=== PATIENT | male | born 1970 | race Caucasian/White ===

== ENCOUNTER 2020-11-13 11:30 | Inpatient (IN) ==
[2020-11-13] MEDS ORDERED: Isovue-370 500 ML BOTTLE IVP ONE (11:44)
[2020-11-13 12:20] LABS: Basophils % 0.2 %; Hematocrit 40.2 % (37.5-50.1); Hemoglobin 13.6 g/dL (12.9-16.9); Immature Granulocytes % 2.7 % (0-4); Lymphocytes # 0.6 K/mcL (0.6-4.6); Lymphocytes % 6.9 %; Mean Corpuscular HGB Conc 33.8 g/dL (31.6-35.5); Mean Corpuscular Hemoglobin 29.2 pg (28.0-33.3); Mean Corpuscular Volume 86.5 fL (83.0-100.0); Mean Platelet Volume 9.4 fL (9.4-12.4); Monocytes # 0.4 K/mcL (0.0-1.3); Monocytes % 4.2 %; Neutrophils # 7.4 K/mcL (1.6-8.9); Nucleated Red Blood Cells 0.3 /100 WBC (0); Platelet Count 260 K/mcL (140-400); Red Blood Count 4.65 M/mcL (4.19-5.50); Red Cell Distribution Width 13.3 % (11.5-14.5); White Blood Count 8.6 K/mcL (4.3-11.1)
[2020-11-13 12:38] LABS: BUN/Creatinine Ratio 13 (6-26); Blood Urea Nitrogen 14 mg/dL (6-20); Calcium 8.4 mg/dL (8.6-10.3); Carbon Dioxide 33 mEq/L (23-29); Chloride 97 mEq/L (98-107); Glucose 148 mg/dL (70-105); Osmolality,Calculated 283 (280-300); Potassium 4.5 mEq/L (3.5-5.1); Sodium 135 mEq/L (136-145); eGFR For African Americans > 60 (> 60); eGFR For Non-African Americans > 60 (> 60)
[2020-11-13 13:01] LABS: ABG Base Excess 7 mEq/L (-2 to 3); ABG HCO3 31 mEq/L (21-27); ABG Oxygen Saturation 93 % (95-98); ABG PCO2 40 mmHg (35-45); ABG PO2 61 mmHg (85-104); ABG TCO2 32 mEq/L (20-26)
[2020-11-13] MEDS ORDERED: Saliva Stimulant 44.3ml BOTTLE PO PRN (14:18)
[2020-11-13] MEDS ORDERED: Saline Nasal Spray 44 ML BOTTLE NS PRN (14:18)
[2020-11-13] MEDS ORDERED: Artificial Tears SOLN 15 ML BOTTLE BOTH EYES PRN (14:18)
[2020-11-13] MEDS ORDERED: Melatonin 3 MG TABLET PO PRN (14:18)
[2020-11-13 15:05] LABS: Alanine Aminotransferase 42 Units/L (7-52); Albumin 3.4 g/dL (3.5-5.7); Albumin/Globulin Ratio 1.1 (1.1-2.2); Alkaline Phosphatase 70 Units/L (34-104); Aspartate Amino Transferase 50 Units/L (13-39); Bilirubin,Direct 0.2 mg/dL (0.0-0.2); Bilirubin,Indirect 0.6 mg/dL (0.0-1.0); Bilirubin,Total 0.8 mg/dL (0.3-1.0); C-Reactive Protein 79 mg/L (Less than 10); Globulin 3.2 g/dL (2.4-3.5); Lactate Dehydrogenase 651 Units/L (140-271); Magnesium 1.9 mg/dL (1.6-2.6); Total Protein 6.6 g/dL (6.4-8.9)
[2020-11-13 15:11] LABS: Ferritin 787 ng/mL (20-250)
[2020-11-13 15:26] LABS: INR 1.2; Prothrombin Time 13.9 Seconds (9.4-12.1)
[2020-11-13] MEDS: Ipratropium 1 PUFF INHALER IH SCH ×3 (15:42→23:39)
[2020-11-13] MEDS: *HR* Heparin 5,000 UNIT/ML VIAL SQ SCH (17:56)
[2020-11-13] MEDS: Calcium Gluconate 1gm/50mL 1 GM/50 ML BAG IVPB SCH ×3 (18:30→23:37)
[2020-11-13 19:07] LABS: Adenovirus Not Detected (Not Detect); Bordetella Pertussis Not Detected (Not Detect); Chlamydophila pneumoniae Not Detected (Not Detect); Coronavirus 229E Not Detected (Not Detect); Coronavirus HKU1 Not Detected (Not Detect); Coronavirus NL63 Not Detected (Not Detect); Coronavirus OC43 Not Detected (Not Detect); Human Metapneumovirus Not Detected (Not Detect); Human Rhinovirus/Enterovirus Not Detected (Not Detect); Influenza A Subtype 2009 H1 Not Detected (Not Detect); Influenza B Not Detected (Not Detect); Mycoplasma pneumoniae Not Detected (Not Detect); Parainfluenza Virus 1 Not Detected (Not Detect); Parainfluenza Virus 2 Not Detected (Not Detect); Parainfluenza Virus 3 Not Detected (Not Detect); Parainfluenza Virus 4 Not Detected (Not Detect); Respiratory Syncytial Virus Not Detected (Not Detect)
[2020-11-13 19:10] LABS: SARS-CoV-2 DETECTED (Not Detect)
[2020-11-13] MEDS ORDERED: Ondansetron 4 MG/2 ML VIAL IVP PRN (19:10)
[2020-11-13] MEDS ORDERED: Naloxone 0.4 MG/ML INJ IVP PRN (19:10)
[2020-11-13] MEDS ORDERED: TOCILIZUMAB 810 MG in 0.9 % Sodium Chloride 95.5 ML IVPB ONE (19:15)
[2020-11-13] MEDS ORDERED: Dextrose Gel 15 GM/37.5 ML TUBE PO PRN ×2 (20:21)
[2020-11-13] MEDS ORDERED: D5% in Water 1,000 ML IVC PRN (20:21)
[2020-11-13] MEDS ORDERED: *HR* Dextrose 50 % in Water (Syg) 50 ML SYRINGE IVP PRN (20:21)
[2020-11-13] MEDS: Chlorhexidine Rinse 15 ML MOUTHWASH MM SCH (21:09)
[2020-11-14] MEDS: Ipratropium 1 PUFF INHALER IH SCH ×6 (03:45→23:56)
[2020-11-14] MEDS: *HR* Heparin 5,000 UNIT/ML VIAL SQ SCH ×2 (06:08→17:13)
[2020-11-14 06:38] LABS: Basophils % 0.4 %; Hemoglobin 13.4 g/dL (12.9-16.9); Immature Granulocytes % 4.4 % (0-4); Lymphocytes # 0.7 K/mcL (0.6-4.6); Lymphocytes % 9.8 %; Mean Corpuscular HGB Conc 33.5 g/dL (31.6-35.5); Mean Corpuscular Hemoglobin 29.5 pg (28.0-33.3); Mean Corpuscular Volume 88.1 fL (83.0-100.0); Mean Platelet Volume 9.8 fL (9.4-12.4); Monocytes # 0.3 K/mcL (0.0-1.3); Monocytes % 4.1 %; Neutrophils # 6.1 K/mcL (1.6-8.9); Nucleated Red Blood Cells 0.8 /100 WBC (0); Platelet Count 280 K/mcL (140-400); Red Blood Count 4.54 M/mcL (4.19-5.50); Red Cell Distribution Width 13.3 % (11.5-14.5); Segmented Neutrophils % 81.3 %; White Blood Count 7.5 K/mcL (4.3-11.1)
[2020-11-14 06:49] LABS: INR 1.2; Prothrombin Time 13.5 Seconds (9.4-12.1)
[2020-11-14 06:58] LABS: Alanine Aminotransferase 41 Units/L (7-52); Albumin 3.4 g/dL (3.5-5.7); Albumin/Globulin Ratio 1.1 (1.1-2.2); Alkaline Phosphatase 68 Units/L (34-104); Aspartate Amino Transferase 35 Units/L (13-39); BUN/Creatinine Ratio 18 (6-26); Bilirubin,Total 0.8 mg/dL (0.3-1.0); Blood Urea Nitrogen 16 mg/dL (6-20); Calcium 8.5 mg/dL (8.6-10.3); Carbon Dioxide 29 mEq/L (23-29); Chloride 96 mEq/L (98-107); Glucose 197 mg/dL (70-105); Magnesium 2.1 mg/dL (1.6-2.6); Osmolality,Calculated 285 (280-300); Phosphorous 3.7 mg/dL (2.7-4.5); Potassium 4.1 mEq/L (3.5-5.1); Sodium 134 mEq/L (136-145); Total Protein 6.4 g/dL (6.4-8.9); eGFR For African Americans > 60 (> 60); eGFR For Non-African Americans > 60 (> 60)
[2020-11-14 07:00] LABS: Lactate Dehydrogenase 620 Units/L (140-271)
[2020-11-14 07:11] LABS: Ferritin 609 ng/mL (20-250)
[2020-11-14 07:14] LABS: Platelet Estimate Normal (Normal); Polychromasia 1+ (Not Present); Reactive Lymphocytes Present (Not Present); Toxic Granulation Present (Not Present)
[2020-11-14 10:26] LABS: C-Reactive Protein 91 mg/L (Less than 10)
[2020-11-14] MEDS: Cholecalciferol (D-3) 1,000 UNIT (25MCG) TABLET PO SCH (10:51)
[2020-11-14] MEDS: Chlorhexidine Rinse 15 ML MOUTHWASH MM SCH ×2 (10:52→21:50)
[2020-11-14] MEDS: Multivit/Ca/Min/Fe/FA 1 TAB TABLET PO SCH (10:52)
[2020-11-15] MEDS: Ipratropium 1 PUFF INHALER IH SCH ×4 (04:12→21:52)
[2020-11-15] MEDS: *HR* Heparin 5,000 UNIT/ML VIAL SQ SCH (06:29)
[2020-11-15 06:33] LABS: Hematocrit 40.2 % (37.5-50.1); Hemoglobin 13.8 g/dL (12.9-16.9); Mean Corpuscular HGB Conc 34.3 g/dL (31.6-35.5); Mean Corpuscular Hemoglobin 29.7 pg (28.0-33.3); Mean Corpuscular Volume 86.5 fL (83.0-100.0); Mean Platelet Volume 9.4 fL (9.4-12.4); Platelet Count 321 K/mcL (140-400); Red Blood Count 4.65 M/mcL (4.19-5.50); Red Cell Distribution Width 13.1 % (11.5-14.5)
[2020-11-15 06:39] LABS: INR 1.1; Prothrombin Time 12.3 Seconds (9.4-12.1)
[2020-11-15 06:40] LABS: White Blood Count 13.6 K/mcL (4.3-11.1)
[2020-11-15 06:53] LABS: BUN/Creatinine Ratio 25 (6-26); Blood Urea Nitrogen 19 mg/dL (6-20); Calcium 8.7 mg/dL (8.6-10.3); Carbon Dioxide 28 mEq/L (23-29); Chloride 98 mEq/L (98-107); Glucose 211 mg/dL (70-105); Osmolality,Calculated 289 (280-300); Potassium 4.6 mEq/L (3.5-5.1); Sodium 135 mEq/L (136-145); eGFR For African Americans > 60 (> 60); eGFR For Non-African Americans > 60 (> 60)
[2020-11-15 06:55] LABS: Lactate Dehydrogenase 663 Units/L (140-271)
[2020-11-15 07:05] LABS: Ferritin 789 ng/mL (20-250)
[2020-11-15] MEDS: Chlorhexidine Rinse 15 ML MOUTHWASH MM SCH ×2 (07:53→19:47)
[2020-11-15] MEDS: Cholecalciferol (D-3) 1,000 UNIT (25MCG) TABLET PO SCH (07:53)
[2020-11-15] MEDS: Multivit/Ca/Min/Fe/FA 1 TAB TABLET PO SCH (07:53)
[2020-11-15] MEDS ORDERED: Isovue-370 500 ML BOTTLE IVP ONE (08:12)
[2020-11-15 11:17] LABS: C-Reactive Protein 35 mg/L (Less than 10)
[2020-11-15] MEDS: *HR* Enoxaparin 150 MG/ML SYRINGE SQ SCH (13:21)
[2020-11-16] MEDS: *HR* Enoxaparin 150 MG/ML SYRINGE SQ SCH ×2 (00:28→11:52)
[2020-11-16 02:50] LABS: C-Reactive Protein 22 mg/L (Less than 10); Lactate Dehydrogenase 677 Units/L (140-271)
[2020-11-16 03:08] LABS: Ferritin 1494 ng/mL (20-250)
[2020-11-16] MEDS: Ipratropium 1 PUFF INHALER IH SCH ×4 (03:59→21:50)
[2020-11-16] MEDS: Chlorhexidine Rinse 15 ML MOUTHWASH MM SCH ×2 (09:46→20:19)
[2020-11-16] MEDS: Multivit/Ca/Min/Fe/FA 1 TAB TABLET PO SCH (09:47)
[2020-11-16] MEDS: Furosemide 20 MG/2 ML VIAL IVP SCH (09:47)
[2020-11-16] MEDS: Cholecalciferol (D-3) 1,000 UNIT (25MCG) TABLET PO SCH (09:48)
[2020-11-16 12:35] LABS: Hematocrit 41.9 % (37.5-50.1); Hemoglobin 14.6 g/dL (12.9-16.9); Mean Corpuscular HGB Conc 34.8 g/dL (31.6-35.5); Mean Corpuscular Hemoglobin 30.2 pg (28.0-33.3); Mean Corpuscular Volume 86.6 fL (83.0-100.0); Mean Platelet Volume 9.8 fL (9.4-12.4); Nucleated Red Blood Cells 0.2 /100 WBC (0); Platelet Count 358 K/mcL (140-400); Red Blood Count 4.84 M/mcL (4.19-5.50); Red Cell Distribution Width 13.2 % (11.5-14.5)
[2020-11-16 12:50] LABS: Alanine Aminotransferase 186 Units/L (7-52); Albumin 3.6 g/dL (3.5-5.7); Albumin/Globulin Ratio 1.2 (1.1-2.2); Alkaline Phosphatase 85 Units/L (34-104); Aspartate Amino Transferase 57 Units/L (13-39); BUN/Creatinine Ratio 24 (6-26); Bilirubin,Total 1.1 mg/dL (0.3-1.0); Blood Urea Nitrogen 22 mg/dL (6-20); Calcium 8.7 mg/dL (8.6-10.3); Carbon Dioxide 31 mEq/L (23-29); Chloride 95 mEq/L (98-107); Glucose 219 mg/dL (70-105); Osmolality,Calculated 290 (280-300); Potassium 4.1 mEq/L (3.5-5.1); Sodium 135 mEq/L (136-145); Total Protein 6.6 g/dL (6.4-8.9); eGFR For African Americans > 60 (> 60); eGFR For Non-African Americans > 60 (> 60)
[2020-11-16 13:13] LABS: Lymphocytes # 1.6 K/mcL (0.6-4.6); Monocytes # 0.3 K/mcL (0.0-1.3); Neutrophils # 13.8 K/mcL (1.6-8.9)
[2020-11-16 13:14] LABS: Platelet Estimate Normal (Normal)
[2020-11-16] MEDS: Apixaban 5 MG TABLET PO SCH (20:19)
[2020-11-17] MEDS: Ipratropium 1 PUFF INHALER IH SCH ×4 (03:30→20:10)
[2020-11-17] MEDS: Furosemide 20 MG/2 ML VIAL IVP SCH (09:08)
[2020-11-17] MEDS: Apixaban 5 MG TABLET PO SCH ×2 (09:08→22:10)
[2020-11-17] MEDS: Multivit/Ca/Min/Fe/FA 1 TAB TABLET PO SCH (09:09)
[2020-11-17] MEDS: Chlorhexidine Rinse 15 ML MOUTHWASH MM SCH ×2 (09:09→23:22)
[2020-11-17] MEDS: Cholecalciferol (D-3) 1,000 UNIT (25MCG) TABLET PO SCH (09:10)
[2020-11-18] MEDS: Ipratropium 1 PUFF INHALER IH SCH ×4 (03:20→21:13)
[2020-11-18 05:33] LABS: Hematocrit 41.6 % (37.5-50.1); Hemoglobin 14.3 g/dL (12.9-16.9); Mean Corpuscular HGB Conc 34.4 g/dL (31.6-35.5); Mean Corpuscular Hemoglobin 29.5 pg (28.0-33.3); Mean Corpuscular Volume 85.8 fL (83.0-100.0); Mean Platelet Volume 9.7 fL (9.4-12.4); Nucleated Red Blood Cells 0.2 /100 WBC (0); Platelet Count 347 K/mcL (140-400); Red Blood Count 4.85 M/mcL (4.19-5.50); White Blood Count 15.7 K/mcL (4.3-11.1)
[2020-11-18 05:40] LABS: Alanine Aminotransferase 144 Units/L (7-52); Albumin 3.4 g/dL (3.5-5.7); Albumin/Globulin Ratio 1.2 (1.1-2.2); Alkaline Phosphatase 78 Units/L (34-104); Aspartate Amino Transferase 41 Units/L (13-39); BUN/Creatinine Ratio 22 (6-26); Bilirubin,Total 1.2 mg/dL (0.3-1.0); Blood Urea Nitrogen 21 mg/dL (6-20); C-Reactive Protein 5 mg/L (Less than 10); Calcium 8.3 mg/dL (8.6-10.3); Carbon Dioxide 24 mEq/L (23-29); Chloride 97 mEq/L (98-107); Fibrinogen 260 mg/dL (169-393); Globulin 2.9 g/dL (2.4-3.5); Glucose 237 mg/dL (70-105); Lactate Dehydrogenase 511 Units/L (140-271); Osmolality,Calculated 287 (280-300); Sodium 133 mEq/L (136-145); Total Protein 6.3 g/dL (6.4-8.9); eGFR For African Americans > 60 (> 60); eGFR For Non-African Americans > 60 (> 60)
[2020-11-18 05:43] LABS: D-Dimer 3173 ng/mLFEU (0-500)
[2020-11-18 05:52] LABS: Ferritin 1233 ng/mL (20-250)
[2020-11-18] MEDS: Chlorhexidine Rinse 15 ML MOUTHWASH MM SCH ×2 (07:46→21:35)
[2020-11-18] MEDS: Apixaban 5 MG TABLET PO SCH ×2 (07:46→21:34)
[2020-11-18] MEDS: Multivit/Ca/Min/Fe/FA 1 TAB TABLET PO SCH (07:47)
[2020-11-18] MEDS: Cholecalciferol (D-3) 1,000 UNIT (25MCG) TABLET PO SCH (07:47)
[2020-11-18] MEDS: Furosemide 20 MG/2 ML VIAL IVP SCH (07:47)
[2020-11-18 08:19] LABS: Eosinophils # 0.3 K/mcL (0.0-0.6); Lymphocytes # 2.2 K/mcL (0.6-4.6); Neutrophils # 13.2 K/mcL (1.6-8.9); Platelet Estimate Normal (Normal)
[2020-11-19] MEDS: Ipratropium 1 PUFF INHALER IH SCH ×2 (03:15→10:39)
[2020-11-19] MEDS ORDERED: Dexamethasone Sodium Phos/PF 10 MG/ML VIAL IVP SCH (09:00)
[2020-11-19] MEDS: Furosemide 20 MG/2 ML VIAL IVP SCH (09:05)
[2020-11-19] MEDS: Chlorhexidine Rinse 15 ML MOUTHWASH MM SCH (09:05)
[2020-11-19] MEDS: Apixaban 5 MG TABLET PO SCH (09:09)
[2020-11-19] MEDS: Multivit/Ca/Min/Fe/FA 1 TAB TABLET PO SCH (09:09)
[2020-11-19] MEDS: Cholecalciferol (D-3) 1,000 UNIT (25MCG) TABLET PO SCH (09:10)
[2020-11-19 09:45] VITALS: BP 119/84; PULSE 96; TEMP 98.4
[2020-11-19 13:54] VITALS: O2SAT 96
== END 2020-11-19 16:04 | disposition home or self-care (01) | DRG 720 ==
LOC: 3NENU 11:30 → EMEROOARM 11:30 → 3NENU 16:25 → SUATTDRO 22:18
PROVIDERS: ADMIT Internal Medicine; ATTEND Family Medicine

== ENCOUNTER 2020-11-27 14:50 | Inpatient (IN) ==
[2020-11-27 16:16] LABS: Basophils % 0.5 %; Eosinophils # 0.2 K/mcL (0.0-0.6); Eosinophils % 2.4 %; Hematocrit 43.9 % (37.5-50.1); Hemoglobin 14.9 g/dL (12.9-16.9); Immature Granulocytes % 0.5 % (0-4); Lymphocytes # 1.3 K/mcL (0.6-4.6); Lymphocytes % 20.6 %; Mean Corpuscular HGB Conc 33.9 g/dL (31.6-35.5); Mean Corpuscular Hemoglobin 29.5 pg (28.0-33.3); Mean Corpuscular Volume 86.9 fL (83.0-100.0); Mean Platelet Volume 10.4 fL (9.4-12.4); Monocytes # 0.6 K/mcL (0.0-1.3); Monocytes % 9.4 %; Neutrophils # 4.1 K/mcL (1.6-8.9); Platelet Count 234 K/mcL (140-400); Red Blood Count 5.05 M/mcL (4.19-5.50); Red Cell Distribution Width 13.7 % (11.5-14.5); Segmented Neutrophils % 66.6 %; White Blood Count 6.2 K/mcL (4.3-11.1)
[2020-11-27 16:41] LABS: Acetaminophen < 10 mcg/mL (10-20); BUN/Creatinine Ratio 18 (6-26); Blood Urea Nitrogen 17 mg/dL (6-20); Calcium 9.1 mg/dL (8.6-10.3); Carbon Dioxide 28 mEq/L (23-29); Chloride 100 mEq/L (98-107); Ethanol < 10 mg/dL (Less than 10); Glucose 186 mg/dL (70-105); Osmolality,Calculated 286 (280-300); Salicylate < 2.5 mg/dL (15.0-30.0); Sodium 135 mEq/L (136-145); eGFR For African Americans > 60 (> 60); eGFR For Non-African Americans > 60 (> 60)
[2020-11-27 18:29] LABS: Amphetamine Screen,Urine Negative ng/mL (Cutoff=1000); Barbiturate Screen,Urine Negative ng/mL (Cutoff=200); Benzodiazepines Screen,Urine Negative ng/mL (Cutoff=200); Cannabinoid Screen,Urine Negative ng/mL (Cutoff = 50); Cocaine Screen,Urine Negative ng/mL (Cutoff= 300); Opiate Screen,Urine Negative ng/mL (Cutoff=300); Phencyclidine Screen,Urine Negative ng/mL (Cutoff=25)
[2020-11-27 18:33] LABS: Bilirubin,Urine Negative (Negative); Blood,Urine Negative (Negative); Clarity,Urine Turbid (Clear); Color,Urine Light-Yellow (Yellow); Glucose,Urine (UA) Normal (Normal); Ketones,Urine Negative (Negative); Leukocyte Esterase,Urine Negative (Negative); Mucus,Urine Few per lpf (None-Few); Nitrite,Urine Negative (Negative); Protein,Urine 100 mg/dL (Neg-Trace); Specific Gravity,Urine 1.024 (1.010-1.025); Sperm,Urine Present per hpf (None Seen); Squamous Epithelial Cell,Urine Few per hpf (None-Few); Urobilinogen,Urine Normal (Normal)
[2020-11-27 23:24] LABS: Influenza A PCR Negative (Negative); Influenza B PCR Negative (Negative); Resp. Syncytial Virus PCR Negative (Negative)
[2020-11-27 23:32] LABS: SARS-CoV-2 by PCR (In House) Negative (Negative)
[2020-11-28] MEDS ORDERED: Haloperidol Lactate 5 MG/ML VIAL IM PRN (00:25)
[2020-11-28] MEDS ORDERED: Ibuprofen 400 MG TABLET PO PRN (00:25)
[2020-11-28] MEDS ORDERED: *HR* LORazepam 2 MG/ML VIAL IM PRN (00:25)
[2020-11-28] MEDS: QUEtiapine Fumarate 25 MG TABLET PO PRN ×2 (01:37→20:07)
[2020-11-28] MEDS: hydrOXYzine pamoate 25 MG CAPSULE PO PRN ×2 (01:37→20:07)
[2020-11-28] MEDS: *HR* LORazepam 1 MG TABLET PO PRN ×2 (02:39→15:02)
[2020-11-28] MEDS: haloperidoL 5 MG TABLET PO PRN ×2 (02:39→15:02)
[2020-11-28] MEDS: Apixaban 5 MG TABLET PO SCH ×2 (08:45→20:07)
[2020-11-28 14:39] LABS: Estimated Average Glucose 148 mg/dl; Hemoglobin A1C 6.8 %
[2020-11-28] MEDS ORDERED: risperiDONE 1 MG TABLET PO SCH (21:00)
[2020-11-29] MEDS: Apixaban 5 MG TABLET PO SCH ×2 (10:12→21:26)
[2020-11-29 10:13] VITALS: O2SAT 96
[2020-11-29] MEDS ORDERED: MOM Conc 10 ML UD.LIQ PO PRN (12:20)
[2020-11-29] MEDS ORDERED: Mag Hydrox/Al Hydrox/Simeth 30 ML UDC PO PRN (12:20)
[2020-11-29 21:00] VITALS: PULSE 103
[2020-11-29] MEDS ORDERED: risperiDONE 1 MG TABLET PO SCH (21:00)
[2020-11-29] MEDS: hydrOXYzine pamoate 25 MG CAPSULE PO PRN (21:26)
[2020-11-29] MEDS: QUEtiapine Fumarate 25 MG TABLET PO PRN (21:26)
[2020-11-30] MEDS: Apixaban 5 MG TABLET PO SCH (08:43)
[2020-11-30 10:25] VITALS: BP 120/86; TEMP 97.6
== END 2020-11-30 12:50 | disposition home or self-care (01) | DRG 753 ==
LOC: EMEROOARM 14:50 → 1ANU 23:51
PROVIDERS: ADMIT Psychiatry & Neurology Psychiatry; ATTEND Psychiatry & Neurology Psychiatry